=== PATIENT | female | born 1970 | race Caucasian/White ===

== ENCOUNTER 2020-10-01 10:27 | Day surgery (SDC) | payer OTHER ==
[~2020-10-01] VITALS: Ht 162.6 cm; Wt 102.6 kg
[2020-10-01 11:21] VITALS: BP 119/69; PULSE 73; TEMP 98
[2020-10-01] MEDS ORDERED: SYNTHROID0.075 MG/T PO (11:41)
[2020-10-01 13:55] VITALS: BP 121/76; PULSE 65; TEMP 97.2
--- NOTE | 2020-10-01 13:55 | NUR ---
Patient brought back to [facility] via cart from OR. Report recieved from [facility], all questions answered. Patient is awake alert on cart, vital signs stable. 3 incisions to left forearm with glue, no drainage noted, CDI. Patient denies pain or nausea. Requesting apple juice and apple sauce at this time. Call [facility] within reach, will continue to monitor.
[2020-10-01 14:10] VITALS: BP 112/71; PULSE 65
--- NOTE | 2020-10-01 14:10 | NUR ---
Tolerating food and drink without difficulty. Will continue to monitor.
[2020-10-01] MEDS ORDERED: MOTRIN 600600 MG/TAB PO (14:17)
[2020-10-01] MEDS ORDERED: NORCO 325 MG-51 TAB PO (14:18)
[2020-10-01 14:25] VITALS: BP 111/71; PULSE 56
--- NOTE | 2020-10-01 14:25 | NUR ---
Patient tolerating food and drink without difficulty. States she feels ready to go home at this time. Father is in parking lot to drive patient home. IV removed, intact. Patient to get dressed at this time.
--- NOTE | 2020-10-01 15:00 | NUR ---
Discharge instructions discussed with patient all questions answered. Follow up appointment made. Dr. Duarte office number provided. Patient brought down to lobby via wheel chair. Placed in fathers truck, will be driven home.
== END 2020-10-01 15:00 | disposition home or self-care (01) ==
LOC: SDCO 10:27
DX: D17.22 Benign lipomatous neoplasm of skin and subcutaneous tissue of left arm (principal); E06.3 Autoimmune thyroiditis; Z80.3 Family history of malignant neoplasm of breast; Z80.8 Family history of malignant neoplasm of other organs or systems
CPT/HCPCS: J0690; J1100; J2250; J2405; J2704; J3010; J7120